=== PATIENT | male | born 1960 | race Caucasian/White ===

== ENCOUNTER 2020-12-14 01:21 | Emergency (ER) | payer SELFPAY ==
[~2020-12-14] VITALS: Ht 167.6 cm; Wt 72.2 kg
[2020-12-14 01:41] VITALS: BP 154/92
== END 2020-12-14 03:15 | disposition home or self-care (01) ==
LOC: ER 01:21
DX: U07.1 COVID-19 (principal); R03.0 Elevated blood-pressure reading, without diagnosis of hypertension; J98.11 Atelectasis
CPT/HCPCS: 71045; 93005; 99285; C9803; U0003